=== PATIENT | male | born 1945 | race Caucasian/White ===

== ENCOUNTER 2020-10-12 10:57 | Emergency (ER) | payer OTHER ==
[~2020-10-12] VITALS: Ht 172.7 cm; Wt 98.0 kg
[2020-10-12 12:10] LABS: BASOPHILS % 0.3 % (0.0-2.0); EOSINOPHILS % 0.9 % (0.0-5.0); HEMATOCRIT. 36.5 % (42.0-52.0); HEMOGLOBIN. 12.1 g/dL (14.0-18.0); MEAN CORPUSCULAR HEMOGLOBIN 30.2 pg (28.0-32.0); MEAN CORPUSCULAR VOLUME 91.4 fL (80.0-94.0); MEAN PLATELET VOLUME 7.2 fl (7.4-10.4); MONOCYTES % 8.7 % (2.0-8.0); NEUTROPHILS % 74.1 % (40.0-76.0); PLATELET 277 x1000/uL (130-400); RED BLOOD CELL COUNT 3.99 mill/uL (4.7-6.1); RED CELL DISTRIBUTION WIDTH 14.1 % (11.6-14.6)
[2020-10-12 12:12] LABS: CLARITY URINE CLOUDY (CLEAR); COLOR URINE DK YELLOW (YELLOW); KETONES URINE TRACE (NEGATIVE); LEUKOCYTE ESTERASE URINE NEGATIVE (NEGATIVE); NITRITE URINE NEGATIVE (NEGATIVE); OCCULT BLOOD URINE NEGATIVE (NEGATIVE); PH URINE 5.5 (4.5-8.0); PROTEIN URINE NEGATIVE (NEGATIVE); SPECIFIC GRAVITY URINE 1.029 (1.005-1.030)
[2020-10-12 12:15] LABS: PROTHROMBIN TIME 10.7 sec (9.6-11.0)
[2020-10-12 12:16] LABS: CHLORIDE 107 mEq/L (98-107)
[2020-10-12] MEDS ORDERED: KETOROLAC 15MG/ML VIAL IV ONE (14:30)
[2020-10-12] MEDS ORDERED: ACETAMINOPHEN 325MG TABLET PO PRN ×2 (18:45)
[2020-10-12] MEDS ORDERED: MORPHINE SULFATE 4 MG/ML CPJ (NOT FOR IM USE) IV PRN (18:45)
[2020-10-12] MEDS ORDERED: ONDANSETRON HCL 4MG/2ML INJ IV PRN (18:45)
[2020-10-12] MEDS ORDERED: DIPHENHYDRAMINE 50MG/ML VIAL IV PRN (18:45)
[2020-10-12] MEDS ORDERED: SODIUM CHLORIDE 0.9% 1,000 ML IV SCH (18:45)
[2020-10-12] MEDS ORDERED: KETOROLAC 30MG/ML VIAL IV PRN (18:45)
[2020-10-12] MEDS ORDERED: CLONIDINE 0.1MG TABLET PO PRN (18:45)
[2020-10-12] MEDS ORDERED: TAMSULOSIN HCL 0.4MG SR CAPSULE PO NR (19:45)
[2020-10-12] MEDS ORDERED: FAMOTIDINE 20MG/2ML VIAL IV SCH (21:00)
[2020-10-12] MEDS ORDERED: ZOLPIDEM TARTRATE 5MG TABLET PO PRN (21:00)
[2020-10-12 22:11] VITALS: BP 135/76
[2020-10-13] MEDS ORDERED: TAMSULOSIN HCL 0.4MG SR CAPSULE PO SCH (09:00)
== END 2020-10-12 22:18 | disposition home or self-care (01) ==
LOC: ER 11:12 → EDBEDREQ 14:13 → ENRESERV 20:36 → CANRESERV 20:36 → ER 22:18 → CANBEDREQ 10-13 01:16
DX: N13.2 Hydronephrosis with renal and ureteral calculous obstruction (principal); E11.9 Type 2 diabetes mellitus without complications; I10 Essential (primary) hypertension; Z20.822 Contact with and (suspected) exposure to COVID-19
CPT/HCPCS: 36415; 71045; 74176; 80053; 81003; 83690; 83880; 84484; 85025; 85610; 86850; 86900; 86901; 87426; 93005; 96361; 96374; 96375; 99285; J1885; J3490

== ENCOUNTER 2021-08-19 13:43 | Emergency (ER) | payer OTHER ==
[~2021-08-19] VITALS: Ht 177.8 cm; Wt 95.0 kg
[2021-08-19 15:42] LABS: BASOPHILS % 0.4 % (0.0-2.0); EOSINOPHILS % 2.6 % (0.0-5.0); HEMATOCRIT. 35.3 % (42.0-52.0); HEMOGLOBIN. 11.3 g/dL (14.0-18.0); LYMPHOCYTES % 27.5 % (20.0-50.0); MEAN CORPUSCULAR HEMOGLOBIN 29.2 pg (28.0-32.0); MEAN CORPUSCULAR VOLUME 91.5 fL (80.0-94.0); MEAN PLATELET VOLUME 7.4 fl (7.4-10.4); NEUTROPHILS % 60.5 % (40.0-76.0); PLATELET 293 x1000/uL (130-400); RED BLOOD CELL COUNT 3.86 mill/uL (4.7-6.1)
[2021-08-19] MEDS ORDERED: ONDA4TAB11 PO (18:11)
[2021-08-19 18:18] VITALS: BP 111/58
== END 2021-08-19 18:19 | disposition home or self-care (01) ==
LOC: ER 13:43
DX: B34.9 Viral infection, unspecified (principal); E11.9 Type 2 diabetes mellitus without complications; I10 Essential (primary) hypertension
CPT/HCPCS: 36415; 71045; 80048; 82962; 85025; 93005; 99285